=== PATIENT | female | born 1975 | race Caucasian/White ===

== ENCOUNTER 2019-08-17 10:30 | Outpatient (RCR) | payer OTHER, SELFPAY ==
--- NOTE | 2019-07-24 12:48 | ST.OPIE ---
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 Young Reason for Referral memory changes Evaluation Assessment Type Cognitive Past Medical History Patient History Karolina Gallagher, age 44, was seen for a cognitive evaluation secondary to a referral from her neurologist, Dr. Young. 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 Karolina reported that when she was in the 6th grade and she repeated 6th garde. Additionally, she repeated 6th grade. After that her education was in a typical classroom. She graduated from highs school without further intervention needed. Currently, Karolina reports difficulty with memory, and word-finding. She describes her speech as stumbling over words, forgetting known words, and trouble with remembering things. In addition, she reports that she is stressed and is always thinking, can' t shut down my brain. She reports that she sleeps fitfully and has a medical history of constant UTIs, heavy menses and related anxiety/stress. Karolina reports that she thinks her worsening memory and word finding may be related to her stress level . - Formal Assessment Standardized Test The Cognitive Linguistic Quick Test (CLQT) Administration Complete Results The CLQT is comprised of 5 Domains: Attention, Memory, Executive Functions, Language and Visuospatial Skills. 10 Tasks/Areas are assessed within these Domains: Personal Facts, Symbol Cancellation, Confrontational Naming, Clock Drawing, Story Retelling, Symbol Trails, Generative Naming, Design Memory, Mazes, Design Generation, and Auditory Comprehension. The results of each of the 10 tasks indicated scores WNL. Additionally, Karolina's scores for each Domain were WNL. Her scores for all 10 tasks met criteria/WNL and, finally, her Non-Lingual Cognition was determined to be WNL. - Cognition Orientation Skill Level WNL Attention Skill Level WNL Problem Solving/Reasoning/Judgment Skill Level WNL Divergent Naming Skill Level WNL Sequencing Skill Level WNL Clock Drawing Skill Level WNL - Memory Short Term Memory Skill Level WNL Immediate Recall Skill Level WFL Word Recall Skill Level WFL Story Recall Skill Level WFL Long-Term Memory Skill Level WNL - Recommendations Recommendations Recommend additional testing for word-finding ability using [place] Naming Test. Observe and monitor for any s/ sx of linguistic difficulties (i.e., aphasia, comprehension, etc. ) Total Time Full Evaluation Time 105
--- NOTE | 2019-07-24 12:49 | ST.OPPOC ---
Visit Care Team Role Provider Type Stevie Rosenberg MD Primary Care Provider Non-Staff Address: [address] [place], [address] Angelia Young MD Attending Provider Non-Staff Address: [address] [place], [address] Speech Pathology Plan of Care Plan of Care Dates 07/20/19-10/24/18 Please Sign and Return: I have reviewed this Plan of Care and certify that the skilled therapy services above are required to meet the patient?s needs. Physician Signature Date Printed Name and Credentials Clinical Instructor Signature Printed Name and Credentials
--- NOTE | 2019-08-04 18:09 | ST.OPIE ---
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 Young Reason for Referral memory changes Evaluation Assessment Type Cognitive Past Medical History Patient History Karolina Gallagher, age 44, was seen for a cognitive evaluation secondary to a referral from her neurologist, Dr. Young. 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 Karolina reported that when she was in the 6th grade and she repeated 6th garde. Additionally, she repreated 6th grade. After that her education was in a typical [employer]. She graduated from [employer] without further intervention needed. Currently, Karolina reports difficulty with memory, and word-finging. She describes her speech as stumbling over words, forgetting known words, and trouble with remembering things. In addition, she reports that she is stressed and is always thinking, can' t shut down my brain. She reports that she sleeps fitfully and has a medical history of constant UTIs, heavy menses and related anxiety/stress. Karolina reports that she thinks her worsening memory and word finding may be related to her stress level . - Formal Assessment Standardized Test The Cognitive Linguistic Quick Test (CLQT) Administration Complete Results The CLQT is comprised of 5 Domains: Attention, Memory, Executive Functions, Language and Visuospatial Skills. 10 Tasks/Areas are assessed within these Domains: Personal Facts, Symbol Cancellation, Confrontational Naming, Clock Drawing, Story Retelling, Symbol Trails, Generative Naming, Design Memory, Mazes, Design Generation, and Auditory Comprehension. The results of each of the 10 tasks indicated scores WNL. Additionally, Karolina's scores for each Domain were WNL. Her scores for all 10 tasks met criteria/WNL and, finally, her Non-Lingual Cognition was determined to be WNL. - Cognition Orientation Skill Level WNL Attention Skill Level WNL Problem Solving/Reasoning/Judgment Skill Level WNL Divergent Naming Skill Level WNL Sequencing Skill Level WNL Clock Drawing Skill Level WNL - Memory Short Term Memory Skill Level WNL Immediate Recall Skill Level WFL Word Recall Skill Level WFL Story Recall Skill Level WFL Long-Term Memory Skill Level WNL - Recommendations Recommendations Recommend additional testing for word-finding ability using [place] Naming Test. Observe and monitor for any s/ sx of linguistic difficulties (i.e., aphasia, comprehension, etc. 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 Karolina reported that when she was in the 6th grade and she repeated 6th garde. Additionally, she repeated 6th grade. After that her education was in a typical classroom. She graduated from high school without further intervention needed. Currently, Karolina reports difficulty with memory, and word-finding. She describes her speech as stumbling over words, forgetting known words, and trouble with remembering things. Subjective Subjective Karolina presented as a pleasant woman in her 40s - Formal Assessment Standardized Test Br[place]comb naming Test - Complete version Administration Complete Raw Score 58 Standard Score 56.8 +/- 3.0 Results The results of the [place] Naming Test was determined to be WNL. She was able to spontaneously name 50 pictures . She needed a verbal cue for 9 pictures, with 8 successfully named following the verbal cue. Phonemic cueing was effective fo 4/5 opportunities. She was able to recognize the printed word for 4/5 words she found difficult to name. She presented with 2 paraphasia words during the assessment. Karolina appeared to be stressed over the words she needed assistance with. Some words she was unfamiliar with (e.g., yoke, noose, compass). - Receptive Language - Expressive Language - Findings Language Findings Karolina presented with word finding skills WNL. Due to her stress level with her difficulties, speech therapy is recommended 2-3 times in order to teach compensation skills and to teach her ways she can help herself when challenged with a word Treatment Goals Short Term Goals Karolina will learn compensation strategies for word-finding. Karolina will recognize and express when she needs ahelp with a word and when she wants to try to name it herself.
--- NOTE | 2019-08-04 18:10 | ST.OPPOC ---
Physical, Occupational & Speech Therapy At [facility] Visit Care Team Role Provider Type Stevie Rosenberg MD Primary Care Provider Non-Staff Address: [address] [place], [address] Angelia Young MD Attending Provider Non-Staff Address: [address] [facility], [place], [address] Speech Pathology Plan of Care Plan of Care Dates 07/20/19-10/24/18 Short Term Goals Julieth will learn compensation strategies for word-finding. julieth will recognize and express when she needs ahelp with a word and when she wants to try to name it herself. Electronically Signed by: LLOYD Patel 08/04/19 1810 Please Sign and Return: I have reviewed this Plan of Care and certify that the skilled therapy services above are required to meet the patient?s needs. Physician Signature Date Printed Name and Credentials Clinical Instructor Signature Printed Name and Credentials
--- NOTE | 2019-08-04 18:11 | ST.OPPOC ---
Physical, Occupational & Speech Therapy At [facility] Visit Care Team Role Provider Type Stevie Rosenberg MD Primary Care Provider Non-Staff Address: [address] [place], [address] Angelia Young MD Attending Provider Non-Staff Address: [address] [facility], [place], [address] Speech Pathology Plan of Care Plan of Care Dates 07/20/19-10/24/18 Short Term Goals Julieth will learn compensation strategies for word-finding. julieth will recognize and express when she needs ahelp with a word and when she wants to try to name it herself. Electronically Signed by: LLOYD Patel 08/04/19 1761 Please Sign and Return: I have reviewed this Plan of Care and certify that the skilled therapy services above are required to meet the patient?s needs. Physician Signature Date Printed Name and Credentials Clinical Instructor Signature Printed Name and Credentials
--- NOTE | 2019-08-17 12:11 | ST.OPTN ---
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 GRAIN GRADER Treatment Note Start: 07/24/19 10:53 Freq: Status: Active Protocol: Document 08/17/19 11:54 LNK (Rec: 08/17/19 12:10 LNK [email or web address]) Speech Pathology Treatment Note Session Time Visit Start Time 10:30 Visit Stop Time 11:00 Total Visit Minutes 30 Visit Information Visit Number 3 Plan of Care Dates 07/20/19-10/24/18 Setting Treatment Setting Outpatient Care Visit Type Note Type Treatment Note Next Note Type Next Note Type Discharge Summary General Information General Information According to the records provided and interview information provided by Karolina, 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 Karolina reported that when she was in the 6th grade and she repeated 6th garde. Additionally, she repeated 6th grade. After that her education was in a typical classroom. She graduated from high school without further intervention needed. Currently, Karolina reports difficulty with memory, and word-finding. She describes her speech as stumbling over words, forgetting known words, and trouble with remembering things. Cognitive and word-finding assessments noted her skills to be WNL. She does express stress in her life. She has seen counselors in the past. 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 Karolina will recognize and express when she needs help with a word and when she wants to try to name it herself. Treatment Activities Reviewed the test results with Karolina. Both cognition and word finding test results were WNL. Discussed with Karolina the potential role stress in her life plays on memory as well as language. She noted that she has seen a counselor in the past regarding her depression and anxiety. Lists for memory and word finding tools were provided for Karolina. Review of the lists indicated that Karolina is applying many of these in her daily activities. It was recommended that Karolina be referred to a psychologist/ counselor regarding her anxiety/depression/stress. After discussion it was determined that further speech therapy is not warranted at this time. Karolina was in agreement Assessment Patient Response to Treatment Excellent Progress Towards Goals Appropriate for Discharge Reviewed with Patient Home Exercise Program Plan Amount of Therapy Recommended No Further Therapy
--- NOTE | 2019-08-17 12:13 | ST.OPDS ---
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 Karolina reported that when she was in the 6th grade and she repeated 6th garde. Additionally, she repreated 6th grade. After that her education was in a typical classroom. She graduated from high school without further intervention needed. Currently, Karolina reports difficulty with memory, and word-finding. She describes her speech as stumbling over words, forgetting known words, and trouble with remembering things. Cognitive and word-finding assessments noted her skills to be WNL. She does express stress in her life. She has seen counselors in the past. [ End ] Objective Treatment Activities Reviewed the test results with Karolina. Both cognition and word finding test results were WNL. Discussed with Karolina the potential role stress in her life plays on memory as well as language. She noted that she has seen a counselor in the past regarding her depression and anxiety. Lists for memory and word finding tools were provided for Karolina. Review of the lists indicated that Karolina is applying many of these in her daily activities. It was recommended that Karolina be referred to a psychologist/ counselor regarding her anxiety/depression/stress. After discussion it was determined that further speech therapy is not warranted at this time. Karolina was in agreement Assessment Progress Towards Goals Appropriate for Discharge Reviewed with Patient Home Exercise Program Plan Amount of Therapy Recommended No Further Therapy Therapy Recommendations Discharge from Speech Therapy
== END 2019-08-17 13:54 ==
LOC: SP 10:30
PROVIDERS: PCP General Practice; Visit Provider Psychiatry & Neurology Neurology
DX: R41.3 Other amnesia (principal); Q04.0 Congenital malformations of corpus callosum
CPT/HCPCS: 96105; 96125; 97129; 97130